=== PATIENT | female | born 1965 | race Caucasian/White ===

== ENCOUNTER 2017-02-03 12:03 | Emergency (ER) | payer BC ==
[2017-02-03 13:25] VITALS: BP 101/66
--- NOTE | 2017-02-03 14:31 | UC ---
Throat Pain/Nasal Brian HPI - HPI Summary HPI Summary: Patient presents with an unremarkable past medical history. She presents today with complaints of head congestion, sore throat, runny nose and reported fever, and chills. She is visiting [place] from [place] and is planning of going home this week-end. She is worried about flying, and that her symptoms will get worse and she will not have the medications she needs. She denies headache, chest or abdominal pain, nausea, vomiting, diarrhea associated with her concerns today. - History of Current Complaint Chief Complaint: UCGeneralIllness Stated Complaint: SORE THROAT Time Seen by Provider: 02/03/17 13:31 Hx Obtained From: Patient ?: No Onset/Duration: Gradual Onset, Lasting Days Severity: Mild Cough: Nonproductive Associated Signs & Symptoms: Positive: Nasal Discharge - Epiglottits Risk Factors Epiglottis Risk Factors: Negative - Allergies/Home Medications Allergies/Adverse Reactions: Allergies Allergy/AdvReac Type Severity Reaction Status Date / Time No Known Allergies Allergy Verified 02/03/17 13:20 PMH/Surg Hx/FS Hx/Imm Hx Previously Healthy: Yes - Surgical History Surgical History: None - Family History Known Family History: Positive: None - Social History Lives: With Family Alcohol Use: Occasionally Substance Use Type: None Smoking Status (MU): Never Smoked Tobacco Review of Systems Constitutional: Negative Skin: Negative Eyes: Negative ENT: Sore Throat, Nasal Discharge, Sinus Congestion Respiratory: Negative Cardiovascular: Negative Gastrointestinal: Negative Genitourinary: Negative Motor: Negative Neurovascular: Negative Musculoskeletal: Negative Neurological: Negative Psychological: Negative All Other Systems Reviewed And Are Negative: Yes Physical Exam Triage Information Reviewed: Yes Appearance: Ill-Appearing Vital Signs: Initial Vital Signs Temp 100.4 F 02/03/17 13:21 Pulse 96 02/03/17 13:21 Resp 16 02/03/17 13:21 BP 101/66 02/03/17 13:21 Pulse Ox 100 02/03/17 13:21 Vital Signs Reviewed: Yes Eye Exam: Normal ENT: Positive: Pharyngeal erythema, Nasal congestion Neck exam: Normal Respiratory Exam: Normal Cardiovascular Exam: Normal Abdominal Exam: Normal Skin Exam: Normal Throat Pain/Nasal Course/Dx - Course Course Of Treatment: Patient presents with complaints of nasal stuffiness, runny nose, and sore throat. Her rapid strep was negative.She is flying home this week-end and would like some medication for her symtpoms. She was RX Ibuprofen, and Excedrin per her request and I told her not to take these two medication together as they are of the same class. She was also RX sudafed for nasal congestion, and given an RX for Penvk but tole not to start it unless her symtpoms worsen. We specially discussed white patches on her throat, worse throat pain, fever or chills not controllled with tyelnol. I feel her symtpoms at this time are viral and we discussed that antibiotics would not help her get better faster. She verbalized understanding and was in agreement with the discharge plan. - Differential Dx/Diagnosis Differential Diagnosis/HQI/PQRI: Pharyngitis Provider Diagnoses: pharyngitis Discharge - Discharge Plan Condition: Stable Disposition: HOME Prescriptions: [id number] [Excedrin Extra Strength] 1 tab PO Q6HR #20 tab Ibuprofen TAB* [Motrin TAB* 800 MG] 800 mg PO TID #20 tab Penicillin VK TAB* [Penicillin VK 250 mg Tab*] 500 mg PO QID #40 tab Pseudoephedrine TAB* [Sudafed TAB*] 60 mg PO TID PRN #20 tab MDD 3 PRN Reason: Congestion Patient Education Materials: Pharyngitis (ED) Referrals: No Primary Care Phys,NOPCP [Primary Care Provider] - Additional Instructions: Do not take the antibiotic unless your symptoms worsen.
== END 2017-02-03 14:27 | disposition home or self-care (01) ==
LOC: UCEAST 12:03
DX: J02.9 Acute pharyngitis, unspecified (principal)
CPT/HCPCS: 87651; 99202; G0463